=== PATIENT | male | born 2000 | race African-American/Black ===

== ENCOUNTER 2023-09-13 01:01 | Emergency (ER) | payer BC, SELFPAY ==
--- NOTE | ~2023-09-13 | XR_ITS ---
Right Shoulder Technique: AP and scapular Y views were obtained. Clinical History: Pain Findings: No fracture or dislocation is seen. Osseous alignment is anatomic. The glenohumeral and acr omioclavicular joint spaces are preserved. Soft tissues are unremarkable. Impression: Unremarkable right shoulder radiographs. Reviewed, dictated and finalized at [facility]. Impression: Unremarkable right shoulder radiographs.
[2023-09-13 01:10] VITALS: BP 123/77; PULSE 71; RESP 16; TEMP 36.6; O2SAT 99
--- NOTE | 2023-09-13 01:10 | ED.EXTPRO ---
HPI - Extremity Problem General Chief complaint: Extremity Injury, Upper Stated complaint: i think i have a dislocated shoulder right shoul Time Seen by Provider: 09/13/23 01:08 Source: patient Mode of arrival: ambulatory Limitations: no limitations History of Present Illness HPI Narrative: Isela is a 23-year-old male patient presenting to the ER today for possible dislocation of his right shoulder. He reports he developed shoulder pain approximately 1 week ago. Has a popping sensation when he is moving his shoulder and pain over the clavicle Denies any known injury. Review of Systems Review of Systems: Pertinent positives per HPI. Patient denies any fever, chills, rash, headache, visual changes, dizziness, cough, runny nose, sore throat, shortness of breath, chest pain, palpitations, nausea, vomiting, diarrhea, constipation, abdominal pain, or any urinary issues. PMFSH Comments At the time of my signature, I reviewed and agree with the nursing past medical, surgical, social, and family history. There is no relevant family history pertinent to the patient complaint. Exam Narrative: General: Well-developed, well nourished, in no apparent distress Head: Normocephalic, atraumatic. Cardio: Regular rate and rhythm, s1 and s2 normal, no murmur appreciated. Resp: Clear to auscultation bilaterally, no rhonchi, rales, wheezing or rubs. Musculoskeletal: No deformity, non-tender to palpation over the right shoulder or right clavicle, grossly normal range of motion of right shoulder, muscle strength strong and equal, peripheral pulse strong, no edema, no cyanosis, normal gait and station Course Course Emergency Course: Portions of this record may have been created with voice recognition software. Vital Signs Vital signs: Vital Signs Temperature 36.6 C 09/13/23 01:10 Pulse Rate 71 09/13/23 01:10 Respiratory Rate 16 09/13/23 01:10 Blood Pressure 123/77 09/13/23 01:10 Pulse Oximetry 99 09/13/23 01:10 Oxygen Delivery Room Air 09/13/23 01:10 Temperature 36.6 C 09/13/23 01:10 Pulse Rate 71 09/13/23 01:10 Respiratory Rate 16 09/13/23 01:10 Blood Pressure 123/77 09/13/23 01:10 Pulse Oximetry 99 09/13/23 01:10 Oxygen Delivery Room Air 09/13/23 01:10 Vital signs reviewed MDM - Extremity (Nontraumatic) MDM Narrative Medical decision making narrative: At the time of visit patient is resting comfortably on the exam table. Patient appears to be nontoxic. Diagnostics: X-ray of the right shoulder was performed and was negative for any sign of fracture or malalignment of the shoulder or clavicle Plan: I suspect patient has a right shoulder strain. Arm sling was given. Supportive measures were discussed with the patient and they voiced understanding discharge instructions and agrees to treatment plan. Return precautions reviewed Differential Diagnosis Differential diagnosis: Likely other ( humerus fracture, clavicle fracture, shoulder strain, rotator cuff tear, AC separation) Discharge Plan Discharge Clinical Impression: Right shoulder strain Qualifiers: Encounter type: initial encounter Qualified Code(s): S46.911A - Strain of unspecified muscle, fascia and tendon at shoulder and upper arm level, right arm, initial encounter Patient Disposition: Home, Self-Care Condition: Stable Instructions: Antibiotic Form, Shoulder Sprain (ED) Additional Instructions: X-rays negative for any fracture or malalignment of the right shoulder or right clavicle Rest and ice May wear arm sling as needed Tylenol/motrin for pain as discussed. May apply Aspercreme, blue emu, or lidocaine to the affected area to help alleviate pain Follow up with your PCP if symptoms persist more than 1 week. Rest, ice, elevate, and wear shan wrap as directed Follow-up/Referrals: PHYSICIAN NOT ON STAFF,NONSTAFF [Primary Care Provider] - Time of Disposition: 01:36 Quality NIHSS
[2023-09-13 01:51] VITALS: BP 120/78; PULSE 74; RESP 15; O2SAT 100
== END 2023-09-13 01:52 | disposition home or self-care (01) ==
LOC: ANHED 01:46
PROVIDERS: Emergency Provider Nurse Practitioner Family
DX: S46.911A Strain of unspecified muscle, fascia and tendon at shoulder and upper arm level, right arm, initial encounter (principal); X58.XXXA Exposure to other specified factors, initial encounter
CPT/HCPCS: 73030; 99283; A4565